=== PATIENT | female | born 1990 | race Two or more races ===

== ENCOUNTER 2025-10-08 09:40 | Outpatient (CLI) | payer BC ==
[2025-10-08 10:39] LABS: Hematocrit 41.4 % (36.0-46.0); Hemoglobin 14.4 g/dL (12.2-16.2); Mean Corpuscular Hemoglobin 31.0 pg (28.0-32.0); Mean Corpuscular Volume 89.5 fL (80.0-100.0); Nucleated Red Blood Cells % 0.0 %
[2025-10-08 10:44] LABS: Urine Budding Yeast OCCASIONAL /hpf (None Seen); Urine Protein, UAD Negative (Negative)
[2025-10-08 10:55] LABS: Alkaline Phosphatase 52 U/L (46-116); Anion Gap 10 (5-15); BUN/Creatinine Ratio 11.5 (10.0-20.0); Blood Urea Nitrogen 9 mg/dL (9-23); Calcium 9.3 mg/dL (8.7-10.4); Carbon Dioxide 26 mmol/L (20-31); Chloride 106 mmol/L (98-107); Glucose 85 mg/dL (74-106); Potassium 4.1 mmol/L (3.5-5.1); Sodium 142 mmol/L (136-145)
[2025-10-08 10:56] LABS: Magnesium 1.6 mg/dL (1.6-2.6); Total Protein 7.1 g/dL (5.7-8.2); Triglycerides 59 mg/dL (< 150)
[2025-10-08 10:57] LABS: Albumin 4.6 g/dL (3.2-4.8)
[2025-10-08 10:58] LABS: Bilirubin, Total 1.0 mg/dL (0.2-1.0)
[2025-10-08 11:02] LABS: Alanine Aminotransferase 9 U/L (7-40); HDL Cholesterol 64 mg/dL (40-59)
[2025-10-08 11:10] LABS: Cholesterol 169 mg/dL (< 200)
== END 2025-10-08 17:00 | disposition home or self-care (01) ==
LOC: LAB 09:40
PROVIDERS: ATTEND Nurse Practitioner Family
DX: E78.5 Hyperlipidemia, unspecified (principal); E83.42 Hypomagnesemia; Z00.01 Encounter for general adult medical examination with abnormal findings
CPT/HCPCS: 36415; 80053; 80061; 81001; 82306; 83735; 84443; 85025